=== PATIENT | female | born 1980 | race Caucasian/White ===

== ENCOUNTER 2016-10-18 15:02 | Emergency (ER) | payer OTHER ==
[2016-10-18 16:38] LABS: BASOPHIL 0.3 % (0-2); EOSINOPHIL 1.6 % (0-5); HCT 35.8 % (37.0-47.0); HGB 12.1 g/dl (12.5-16.0); LYMPHOCYTE 28.2 % (15-48); MCH 29.7 pg (25.0-31.0); MCHC 33.8 g/dL (32.0-36.0); MONOCYTE 8.6 % (0-12); MPV 10.4 fL (6.0-9.5); NEUTROPHIL 61.3 % (41-80); PLT 280 K/uL (150-400); RBC 4.07 M/uL (4.20-5.40); RDW 12.4 % (11.5-14.0); WBC 6.1 K/uL (4.0-10.5)
[2016-10-18 16:44] LABS: INR 1.06 (0.9-1.2); PROTHROMBIN TIME 13.4 SECONDS (11.7-14.0); PTT 24.7 SECONDS (23.2-31.4)
[2016-10-18 16:56] LABS: ALBUMIN 4.6 g/dL (3.5-5.0); BILIRUBIN - TOTAL 0.4 mg/dL (0.1-1.0); CKMB 1.42 ng/mL (0.97-4.94); CREATININE 0.6 mg/dL (0.5-1.0); GLOBULIN (CALCULATION) 2.5 g/dL (2.2-4.2); MAGNESIUM 2.14 mg/dL (1.40-2.10); MYOGLOBIN 21 ng/mL (26-65); POTASSIUM 3.5 mmol/L (3.5-5.1); PRO-BNP 57 pg/mL (0-125); TOTAL PROTEIN 7.1 g/dL (6.4-8.3); TROPONIN T < 0.010 ng/mL
== END 2016-10-18 17:50 | disposition home or self-care (01) ==
LOC: FER 15:02
PROVIDERS: Emergency Medicine
DX: K21.9 Gastro-esophageal reflux disease without esophagitis (principal)
CPT/HCPCS: 36415; 71010; 80053; 82550; 82553; 83735; 83874; 83880; 84484; 85025; 85610; 85730; 93005